=== PATIENT | male | born 1990 | race African-American/Black ===

== ENCOUNTER 2018-10-30 21:27 | Emergency (ER) | payer MEDICAID | END 2018-10-30 21:43 | disposition left against medical advice (07) | LOC: ERS 21:27 | DX: Z53.21 Procedure and treatment not carried out due to patient leaving prior to being seen by health care provider (principal) ==

== ENCOUNTER 2019-08-29 18:54 | Emergency (ER) | payer MEDICAID ==
[2019-08-29] MEDS ORDERED: cefTRIAXone\\ROCEPHIN 250 MG VIAL ONE (19:14)
[2019-08-29] MEDS ORDERED: Lidocaine 1% PF 5 ML VIAL ONE (19:14)
[2019-08-29] MEDS ORDERED: Azithromycin 250 MG TAB ONE (19:15)
== END 2019-08-29 19:36 | disposition home or self-care (01) ==
LOC: ERS 18:54
DX: R36.9 Urethral discharge, unspecified (principal); F32.9 Major depressive disorder, single episode, unspecified
CPT/HCPCS: 96372; 99283; J0696; J2001